=== PATIENT | male | born 1965 | race Caucasian/White ===

== ENCOUNTER 2018-04-28 14:38 | Emergency (ER) | payer OTHER, SELFPAY ==
[2018-04-28 14:45] VITALS: BP 143/79; PULSE 87; RESP 18; TEMP 36.6; O2SAT 95; BMI 37.3
[2018-04-28 14:47] VITALS: BP 143/79; PULSE 87; RESP 18; TEMP 36.6; O2SAT 95; BMI 37.3
--- NOTE | 2018-04-28 15:27 | ED.NAVMDI ---
HPI - Nausea/Vomiting/Diarrhea <LIBERTAD Parker - Last Filed: 04/28/18 18:36> General Chief complaint: Nausea/Vomiting/Diarrhea Stated complaint: vomit/drooling Time Seen by Provider: 04/28/18 15:23 Source: patient Mode of arrival: ambulatory Limitations: no limitations History of Present Illness HPI Narrative: 52-year with history of type 2 diabetes a nonsmoker here for complaint of having a food bolus that he feels in the proximal esophagus since last night. He states approximately at 6:30 a.m. last night he was eating some pork 1 when he felt like it got stuck to his lower esophagus area. He says he has been unable to get it to move down. He has been drooling since this timeframe having a hard time swallowing his secretions. He has been swallowing some soda and fluids to try to get it to move which has not helped. Drinking the fluids causes him to also have some spitting up and vomiting. No other concerns or complaints at this timeframe. He is ambulatory into the emergency room. Related Data Allergies Allergy/AdvReac Type Severity Reaction Status Date / Time No Known Drug Allergies Allergy Verified 04/28/18 14:42 Review of Systems <LIBERTAD Parker - Last Filed: 04/28/18 18:36> Constitutional Denies chills, Denies fever(s), Denies lethargy and Denies weakness Eyes Denies change in vision, Denies eye discharge, Denies irritation and Denies loss of vision ENT Ears, Nose, Mouth, and Throat: Denies change in voice, Denies neck pain and Denies sore throat Cardiovascular Denies chest pain, Denies irregular heart rhythm, Denies lightheadedness, Denies palpitations, Denies dyspnea, Denies dyspnea on exertion and Denies orthopnea Respiratory Denies cough, Denies dyspnea, Denies dyspnea on exertion and Denies wheezing Gastrointestinal Comments: Food bolus Genitourinary Denies hematuria, Denies flank pain, Denies urinary incontinence and Denies urinary urgency Musculoskeletal Denies neck pain Integumentary/Breasts Denies pruritus, Denies erythema, Denies rash and Denies wounds Neurologic Denies confusion, Denies loss of vision and Denies weakness Psychiatric Denies anxiety, Denies confusion, Denies depression, Denies homicidal ideation and Denies suicidal ideation Endocrine Denies palpitations Allergic/Immunologic Denies wheezing PFSH <LIBERTAD Parker - Last Filed: 04/28/18 18:36> Social History Smoking Status: Never smoker Social History Smoking Status: Never smoker Exam <LIBERTAD Parker - Last Filed: 04/28/18 18:36> Initial Vital Signs Initial Vital Signs: Vital Signs Temperature 97.9 F 04/28/18 14:45 Pulse Rate 87 04/28/18 14:45 Respiratory Rate 18 04/28/18 14:45 Blood Pressure 143/79 H 04/28/18 14:45 Pulse Oximetry 95 04/28/18 14:45 Const General: cooperative and well developed Nutritional Appearance: well nourished Orientation: alert, awake, oriented x3 and not confused HENMT Mouth: oral mucosae normal and moist mucous membranes Throat: posterior oropharynx normal Eyes Conjunctivae: conjunctivae normal Sclera: sclerae normal Pupils: PERRL EOM: EOM intact bilaterally Resp Effort & Inspection: normal respiratory effort, able to speak in complete sentences, no respiratory distress and no use of accessory muscles Auscultation: clear to auscultation bilaterally, no rales, no rhonchi and no wheezes Cardio Rate: regular rate Rhythm: regular rhythm Heart Sounds: no click, no gallops, no murmurs and no rubs Pulses: normal peripheral pulses GI Inspection: non-distended Palpation: soft, no hepatosplenomegaly, No guarding, No pulsatile mass and No tender Auscultation: normal bowel sounds Skin General: no rashes or lesions noted, No jaundice and No petechiae Neuro General: alert, oriented x3, gait normal and no focal motor deficits Speech: speech normal <Roshni Gallegos MD - Last Filed: 04/28/18 20:14> Initial Vital Signs Initial Vital Signs: Vital Signs Temperature 97.9 F 04/28/18 14:45 Pulse Rate 87 04/28/18 14:45 Respiratory Rate 18 04/28/18 14:45 Blood Pressure 143/79 H 04/28/18 14:45 Pulse Oximetry 95 04/28/18 14:45 Course <LIBERTAD Parker - Last Filed: 04/28/18 18:36> Orders Ordered: ED Orders 04/28/18 16:00 Complete Blood Count AUTO DIFF Stat Comprehensive Metabolic Panel Stat 04/28/18 16:54 XR chest 2V Stat Discontinued Medications Glucagon (Glucagen) 1 mg IV NOW ONE Stop: 04/28/18 15:29 Last Admin: 04/28/18 16:06 Dose: 1 mg Sodium Chloride (Normal Saline 0.9%) 1,000 mls @ 1,000 mls/hr IV BOLUS ONE Stop: 04/28/18 16:33 Last Infusion: 04/28/18 18:10 Dose: 0 mls/hr Admin: 04/28/18 16:06 Dose: 1,000 mls/hr Vital Signs - 8 hr 04/28/18 14:45 04/28/18 14:47 04/28/18 16:10 Temperature 97.9 F 97.9 F Pulse Rate 87 87 95 H Respiratory Rate 18 18 17 Blood Pressure 143/79 H 143/79 H Blood Pressure [Left Arm] 172/76 H Pulse Oximetry 95 95 96 04/28/18 17:14 04/28/18 18:50 Temperature 99.1 F Pulse Rate 93 H 88 Respiratory Rate 16 18 Blood Pressure Blood Pressure [Left Arm] 167/88 H 169/110 H Pulse Oximetry 97 95 <Roshni Gallegos MD - Last Filed: 04/28/18 20:14> Orders Ordered: ED Orders 04/28/18 16:00 Complete Blood Count AUTO DIFF Stat Comprehensive Metabolic Panel Stat 04/28/18 16:54 XR chest 2V Stat Discontinued Medications Glucagon (Glucagen) 1 mg IV NOW ONE Stop: 04/28/18 15:29 Last Admin: 04/28/18 16:06 Dose: 1 mg Sodium Chloride (Normal Saline 0.9%) 1,000 mls @ 1,000 mls/hr IV BOLUS ONE Stop: 04/28/18 16:33 Last Infusion: 04/28/18 18:10 Dose: 0 mls/hr Admin: 04/28/18 16:06 Dose: 1,000 mls/hr Vital Signs - 8 hr 04/28/18 14:45 04/28/18 14:47 04/28/18 16:10 Temperature 97.9 F 97.9 F Pulse Rate 87 87 95 H Respiratory Rate 18 18 17 Blood Pressure 143/79 H 143/79 H Blood Pressure [Left Arm] 172/76 H Pulse Oximetry 95 95 96 04/28/18 17:14 04/28/18 18:50 Temperature 99.1 F Pulse Rate 93 H 88 Respiratory Rate 16 18 Blood Pressure Blood Pressure [Left Arm] 167/88 H 169/110 H Pulse Oximetry 97 95 MDM - Nausea/Vomiting/Diarrhea <LIBERTAD Parker - Last Filed: 04/28/18 18:36> Lab Data Result diagrams: 04/28/18 16:00 04/28/18 16:00 Lab Results 04/28/18 04/28/18 Range/Units 16:00 16:00 WBC 12.5 H (4.5-11.0) X10^3/uL RBC 5.24 (4.5-5.9) X10^6/uL Hgb 14.6 (13.5-17.5) g/dL Hct 44.2 (41-53) % MCV 84.3 (80-100) fL MCH 27.9 (26-34) PG MCHC 33.1 (30-36) % RDW 14.1 (11.6-14.8) % Plt Count 293 (150-400) X10^3/uL Neut % (Auto) 72.3 (50-75) % Lymph % (Auto) 18.2 L (25-40) % [place] % (Auto) 8.5 (3-14) % Eos % (Auto) 0.4 L (2-4) % Baso % (Auto) 0.6 (0-2) % Neut # (Auto) 9100 H (9150-6664) /uL Lymph # (Auto) 2300 (7658-1300) /uL [place] # (Auto) 1100 H (0-900) /uL Eos # (Auto) 100 (0-450) /uL Baso # (Auto) 100 (0-100) /uL Sodium 141 (137-145) mmol/L Potassium 3.7 (3.4-5.1) mmol/L Chloride 101 (98-107) mmol/L Carbon Dioxide 26 (22-32) mmol/L BUN 26 H (9-20) mg/dL Creatinine 0.90 (0.66-1.25) mg/dL Estimated GFR > 60.0 (>60) mL/min BUN/Creatinine Ratio 28.9 H (6-22) Glucose 193 H (70-100) mg/dL Calcium 9.9 (8.4-10.2) mg/dL Total Bilirubin 0.6 (0.2-1.3) mg/dL AST 33 (17-59) IU/L ALT 57 (21-72) IU/L Alkaline Phosphatase 81 (38-126) U/L Total Protein 8.8 H (6.3-8.2) g/dL Albumin 4.8 (3.5-5.0) g/dL Globulin 4.0 (1.7-4.1) g/dL Albumin/Globulin Ratio 1.2 (1.0-2.8) Imaging Data Chest x-ray: Radiologist's impression: [address] [address] XRay Report Signed Patient: Saran Centeno DMR#: [id number] : 1965Acct:[id number] Age/Sex: 52 / MDate of Service: 04/28/18 Loc: ED Accession Number: [id number] Procedure: XR chest 2V Ordering Provider: Johny Abdi PROCEDURE: XR CHEST 2V INDICATIONS: possible food bolus TECHNIQUE: 2 views of the chest were acquired. COMPARISON: None. FINDINGS: Surgical changes and devices: None. Lungs and pleura: Lungs are clear. No pleural effusions or pneumothorax. Mediastinum: Mediastinal contours are normal. Heart size is normal. Bones and chest wall: No suspicious bony abnormalities. Soft tissues appear unremarkable. IMPRESSION: No acute process. Dictated by: Bela Llanes M.D. on 04/28/2018 at 17:19 Approved by: Bela Llanes M.D. on 04/28/2018 at 17:20 [facility] Narrative Medical decision making narrative: attempted to dislodge food bolus by using a glucagon and drinking a his soda. This did not work. Chest x-ray was obtained and was negative for any acute findings. Discussed case with surgery Dr. Cruz who recommends transferring patient to a facility with Gastroenterology. [facility] at [facility] and he will see the patient there. Patient is transferred to [facility] emergency room via POV. Dr. Cope emergency room physician has accepted. Patient transferred to [facility] emergency room v <Roshni Gallegos MD - Last Filed: 04/28/18 20:14> Lab Data Lab Results 04/28/18 04/28/18 Range/Units 16:00 16:00 WBC 12.5 H (4.5-11.0) X10^3/uL RBC 5.24 (4.5-5.9) X10^6/uL Hgb 14.6 (13.5-17.5) g/dL Hct 44.2 (41-53) % MCV 84.3 (80-100) fL MCH 27.9 (26-34) PG MCHC 33.1 (30-36) % RDW 14.1 (11.6-14.8) % Plt Count 293 (150-400) X10^3/uL Neut % (Auto) 72.3 (50-75) % Lymph % (Auto) 18.2 L (25-40) % [place] % (Auto) 8.5 (3-14) % Eos % (Auto) 0.4 L (2-4) % Baso % (Auto) 0.6 (0-2) % Neut # (Auto) 9100 H (1829-6515) /uL Lymph # (Auto) 2300 (9146-6372) /uL [place] # (Auto) 1100 H (0-900) /uL Eos # (Auto) 100 (0-450) /uL Baso # (Auto) 100 (0-100) /uL Sodium 141 (137-145) mmol/L Potassium 3.7 (3.4-5.1) mmol/L Chloride 101 (98-107) mmol/L Carbon Dioxide 26 (22-32) mmol/L BUN 26 H (9-20) mg/dL Creatinine 0.90 (0.66-1.25) mg/dL Estimated GFR > 60.0 (>60) mL/min BUN/Creatinine Ratio 28.9 H (6-22) Glucose 193 H (70-100) mg/dL Calcium 9.9 (8.4-10.2) mg/dL Total Bilirubin 0.6 (0.2-1.3) mg/dL AST 33 (17-59) IU/L ALT 57 (21-72) IU/L Alkaline Phosphatase 81 (38-126) U/L Total Protein 8.8 H (6.3-8.2) g/dL Albumin 4.8 (3.5-5.0) g/dL Globulin 4.0 (1.7-4.1) g/dL Albumin/Globulin Ratio 1.2 (1.0-2.8) Discharge Plan Departure Patient Disposition: Home Clinical Impression: Food impaction of esophagus Qualifiers: Encounter type: initial encounter Qualified Code(s): T18.128A - Food in esophagus causing other injury, initial encounter Discharge Date/Time: 04/28/18 19:18 Interventions: ED Discharge Assessment Last Done: 04/28/18 19:18 Instructions: DI for Removal of Foreign Body From Esophagus Activity Restrictions/Additional Instructions: you referred to [facility] for Gastroenterology for removal of the food impaction into her esophagus. to the emergency room at [facility] where you will be seen there were gastroenterology is available. For any worsening symptoms in route to go to nearest emergency room or call 911.
[2018-04-28 16:05] LABS: Add Manual Diff / Slide Review NO; Basophils Absolute Auto 100 /uL (0-100); Basophils Percent Auto 0.6 % (0-2); Eosinophils Absolute Auto 100 /uL (0-450); Eosinophils Percent Auto 0.4 % (2-4); Hematocrit 44.2 % (41-53); Hemoglobin 14.6 g/dL (13.5-17.5); Lymphocytes Absolute Auto 2300 /uL (1100-4500); Lymphocytes Percent Auto 18.2 % (25-40); Mean Corpuscular HGB Conc 33.1 % (30-36); Mean Corpuscular Hemoglobin 27.9 PG (26-34); Mean Corpuscular Volume 84.3 fL (80-100); Monocytes Absolute Auto 1100 /uL (0-900); Monocytes Percent Auto 8.5 % (3-14); Neutrophils Absolute Auto 9100 /uL (1500-7000); Neutrophils Percent Auto 72.3 % (50-75); Platelet Count 293 X10^3/uL (150-400); Red Blood Cell Count 5.24 X10^6/uL (4.5-5.9); Red Cell Distribution Width 14.1 % (11.6-14.8); White Blood Cell Count 12.5 X10^3/uL (4.5-11.0)
[2018-04-28] MEDS: GLUCAGON,HUMAN RECOMBINANT 1 MG/ML VIAL IV (16:06)
[2018-04-28] MEDS: SODIUM CHLORIDE 0.9% 1,000 ML 1000 ML IV (16:06)
[2018-04-28 16:10] VITALS: BP 172/76; PULSE 95; RESP 17; O2SAT 96
--- NOTE | 2018-04-28 16:12 | PC.NURSE ---
pt reports he is putting his fingers down his throat to vomit. states that he feels that food is stuck in his lower esphagus. able to make full setences.no airway obstruction.
[2018-04-28 16:14] LABS: Alanine Aminotransferase 57 IU/L (21-72); Albumin 4.8 g/dL (3.5-5.0); Albumin Globulin Ratio 1.2 (1.0-2.8); Alkaline Phosphatase 81 U/L (38-126); Aspartate Aminotransferase 33 IU/L (17-59); BUN Creatinine Ratio 28.9 (6-22); Bilirubin Total 0.6 mg/dL (0.2-1.3); Blood Urea Nitrogen 26 mg/dL (9-20); Calcium 9.9 mg/dL (8.4-10.2); Carbon Dioxide 26 mmol/L (22-32); Chloride 101 mmol/L (98-107); Estimated Glomerular Filt Rate > 60.0 mL/min (>60); Glucose 193 mg/dL (70-100); HEMOLYSIS < 15 (0-50); Potassium 3.7 mmol/L (3.4-5.1); Sodium 141 mmol/L (137-145); Total Protein 8.8 g/dL (6.3-8.2)
--- NOTE | 2018-04-28 16:54 | DI.RAD.S_ITS ---
PROCEDURE: XR CHEST 2V INDICATIONS: possible food bolus TECHNIQUE: 2 views of the chest were acquired. COMPARISON: None. FINDINGS: Surgical changes and devices: None. Lungs and pleura: Lungs are clear. No pleural effusions or pneumothorax. Mediastinum: Mediastinal contours are normal. Heart size is normal. Bones and chest wall: No suspicious bony abnormalities. Soft tissues appear unremarkable. IMPRESSION: No acute process. Dictated by: Bela Llanes M.D. on 04/28/2018 at 17:19 Approved by: Bela Llanes M.D. on 04/28/2018 at 17:20
--- NOTE | 2018-04-28 17:06 | PC.NURSE ---
attempted to drink warm coke without any results. pt having some gag. able to swallow secretions, cough
[2018-04-28 17:14] VITALS: BP 167/88; PULSE 93; RESP 16; O2SAT 97
--- NOTE | 2018-04-28 18:31 | ED_ITS ---
HPI - Nausea/Vomiting/Diarrhea <LIBERTAD Parker - Last Filed: 04/28/18 18:36> General Chief complaint: Nausea/Vomiting/Diarrhea Stated complaint: vomit/drooling Time Seen by Provider: 04/28/18 15:23 Source: patient Mode of arrival: ambulatory Limitations: no limitations History of Present Illness HPI Narrative: 52-year with history of type 2 diabetes a nonsmoker here for complaint of having a food bolus that he feels in the proximal esophagus since last night. He states approximately at 6:30 a.m. last night he was eating some pork 1 when he felt like it got stuck to his lower esophagus area. He says he has been unable to get it to move down. He has been drooling since this arpit eframe having a hard time swallowing his secretions. He has been swallowing some soda and fluids to try to get it to move which has not helped. Drinking the fluids causes him to also have some spitting up and vomiting. No other concerns or complaints at this timeframe. He is ambulatory into the emergency room. Related Data Allergies Allergy/AdvReac Type Severity Reaction Status Date / Time No Known Drug Allergies Allergy Verified 04/28/18 14:42 Review of Systems <LIBERTAD Parker - Last Filed: 04/28/18 18:36> Constitutional Denies chills, Denies fever(s), Denies lethargy and Denies weakness Eyes Denies change in vision, Denies eye discharge, Denies irritation and Denies loss of vision ENT Ears, Nose, Mouth, and Throat: Denies change in voice, Denies neck pain and Denies sore throat Cardiovascular Denies chest pain, Denies irregular heart rhythm, Denies lightheadedness, Denies palpitations, Denies dyspnea, Denies dyspnea on exertion and Denies orthopnea Respiratory Denies cough, Denies dyspnea, Denies dyspnea on exertion and Denies wheezing Gastrointestinal Comments: Food bolus Genitourinary Denies hematuria, Denies flank pain, Denies urinary incontinence and Denies urinary urgency Musculoskeletal Denies neck pain Integumentary/Breasts Denies pruritus, Denies erythema, Denies rash and Denies wounds Neurologic Denies confusion, Denies loss of vision and Denies weakness Psychiatric Denies anxiety, Denies confusion, Denies depression, Denies homicidal ideation and Denies suicidal ideation Endocrine Denies palpitations Allergic/Immunologic Denies wheezing PFSH <LIBERTAD Parker - Last Filed: 04/28/18 18:36> Social History Smoking Status: Never smoker Social History Smoking Status: Never smoker Exam <LIBERTAD Parker - Last Filed: 04/28/18 18:36> Initial Vital Signs Initial Vital Signs: Vital Signs Temperature 97.9 F 04/28/18 14:45 Pulse Rate 87 04/28/18 14:45 Respiratory Rate 18 04/28/18 14:45 Blood Pressure 143/79 H 04/28/18 14:45 Pulse Oximetry 95 04/28/18 14:45 Const General: cooperative and well developed Nutritional Appearance: well nourished Orientation: alert, awake, oriented x3 and not confused HENMT Mouth: oral mucosae normal and moist mucous membranes Throat: posterior oropharynx normal Eyes Conjunctivae: conjunctivae normal Sclera: sclerae normal Pupils: PERRL EOM: EOM intact bilaterally Resp Effort & Inspection: normal respiratory effort, able to speak in complete sentences, no respiratory distress and no use of accessory muscles Auscultation: clear to auscultation bilaterally, no rales, no rhonchi and no wheezes Cardio Rate: regular rate Rhythm: regular rhythm Heart Sounds: no click, no gallops, no murmurs and no rubs Pulses: normal peripheral pulses GI Inspection: non-distended Palpation: soft, no hepatosplenomegaly, No guarding, No pulsatile mass and No tender Auscultation: normal bowel sounds Skin General: no rashes or lesions noted, No jaundice and No petechiae Neuro General: alert, oriented x3, gait normal and no focal motor deficits Speech: speech normal <Roshni Gallegos MD - Last Filed: 04/28/18 20:14> Initial Vital Signs Initial Vital Signs: Vital Signs Temperature 97.9 F 04/28/18 14:45 Pulse Rate 87 04/28/18 14:45 Respiratory Rate 18 04/28/18 14:45 Blood Pressure 143/79 H 04/28/18 14:45 Pulse Oximetry 95 04/28/18 14:45 Course <LIBERTAD Parker - Last Filed: 04/28/18 18:36> Orders Ordered: ED Orders 04/28/18 16:00 Complete Blood Count AUTO DIFF Stat Comprehensive Metabolic Panel Stat 04/28/18 16:54 XR chest 2V Stat Discontinued Medications Glucagon (Glucagen) 1 mg IV NOW ONE Stop: 04/28/18 15:29 Last Admin: 04/28/18 16:06 Dose: 1 mg Sodium Chloride (Normal Saline 0.9%) 1,000 mls @ 1,000 mls/hr IV BOLUS ONE Stop: 04/28/18 16:33 Last Infusion: 04/28/18 18:10 Dose: 0 mls/hr Admin: 04/28/18 16:06 Dose: 1,000 mls/hr Vital Signs - 8 hr 04/28/18 14:45 04/28/18 14:47 04/28/18 16:10 Temperature 97.9 F 97.9 F Pulse Rate 87 87 95 H Respiratory Rate 18 18 17 Blood Pressure 143/79 H 143/79 H Blood Pressure [Left Arm] 172/76 H Pulse Oximetry 95 95 96 04/28/18 17:14 04/28/18 18:50 Temperature 99.1 F Pulse Rate 93 H 88 Respiratory Rate 16 18 Blood Pressure Blood Pressure [Left Arm] 167/88 H 169/110 H Pulse Oximetry 97 95 <Roshni Gallegos MD - Last Filed: 04/28/18 20:14> Orders Ordered: ED Orders 04/28/18 16:00 Complete Blood Count AUTO DIFF Stat Comprehensive Metabolic Panel Stat 04/28/18 16:54 XR chest 2V Stat Discontinued Medications Glucagon (Glucagen) 1 mg IV NOW ONE Stop: 04/28/18 15:29 Last Admin: 04/28/18 16:06 Dose: 1 mg Sodium Chloride (Normal Saline 0.9%) 1,000 mls @ 1,000 mls/hr IV BOLUS ONE Stop: 04/28/18 16:33 Last Infusion: 04/28/18 18:10 Dose: 0 mls/hr Admin: 04/28/18 16:06 Dose: 1,000 mls/hr Vital Signs - 8 hr 04/28/18 14:45 04/28/18 14:47 04/28/18 16:10 Temperature 97.9 F 97.9 F Pulse Rate 87 87 95 H Respiratory Rate 18 18 17 Blood Pressure 143/79 H 143/79 H Blood Pressure [Left Arm] 172/76 H Pulse Oximetry 95 95 96 04/28/18 17:14 04/28/18 18:50 Temperature 99.1 F Pulse Rate 93 H 88 Respiratory Rate 16 18 Blood Pressure Blood Pressure [Left Arm] 167/88 H 169/110 H Pulse Oximetry 97 95 MDM - Nausea/Vomiting/Diarrhea <LIBERTAD Parker - Last Filed: 04/28/18 18:36> Lab Data Result diagrams: 04/28/18 16:00 04/28/18 16:00 Lab Results 04/28/18 04/28/18 Range/Units 16:00 16:00 WBC 12.5 H (4.5-11.0) X10^3/uL RBC 5.24 (4.5-5.9) X10^6/uL Hgb 14.6 (13.5-17.5) g/dL Hct 44.2 (41-53) % MCV 84.3 (80-100) fL MCH 27.9 (26-34) PG MCHC 33.1 (30-36) % RDW 14.1 (11.6-14.8) % Plt Count 293 (150-400) X10^3/uL Neut % (Auto) 72.3 (50-75) % Lymph % (Auto) 18.2 L (25-40) % [place] % (Auto) 8.5 (3-14) % Eos % (Auto) 0.4 L (2-4) % Baso % (Auto) 0.6 (0-2) % Neut # (Auto) 9100 H (5403-6431) /uL Lymph # (Auto) 2300 (8253-8276) /uL [place] # (Auto) 1100 H (0-900) /uL Eos # (Auto) 100 (0-450) /uL Baso # (Auto) 100 (0-100) /uL Sodium 141 (137-145) mmol/L Potassium 3.7 (3.4-5.1) mmol/L Chloride 101 (98-107) mmol/L Carbon Dioxide 26 (22-32) mmol/L BUN 26 H (9-20) mg/dL Creatinine 0.90 (0.66-1.25) mg/dL Estimated GFR > 60.0 (>60) mL/min BUN/Creatinine Ratio 28.9 H (6-22) Glucose 193 H (70-100) mg/dL Calcium 9.9 (8.4-10.2) mg/dL Total Bilirubin 0.6 (0.2-1.3) mg/dL AST 33 (17-59) IU/L ALT 57 (21-72) IU/L Alkaline Phosphatase 81 (38-126) U/L Total Protein 8.8 H (6.3-8.2) g/dL Albumin 4.8 (3.5-5.0) g/dL Globulin 4.0 (1.7-4.1) g/dL Albumin/Globulin Ratio 1.2 (1.0-2.8) Imaging Data Chest x-ray: Radiologist's impression: [address] [address] XRay Report Signed Patient: Saran Centeno DMR#: [id number] : 1965Acct:[id number] Age/Sex: 52 / MDate of Service: 04/28/18 Loc: ED Accession Number: [id number] Procedure: XR chest 2V Ordering Provider: Johny Abdi PROCEDURE: XR CHEST 2V INDICATIONS: possible food bolus TECHNIQUE: 2 views of the chest were acquired. COMPARISON: None. FINDINGS: Surgical changes and devices: None. Lungs and pleura: Lungs are clear. No pleural effusions or pneumothorax. Mediastinum: Mediastinal contours are normal. Heart size is normal. Bones and chest wall: No suspicious bony abnormalities. Soft tissues appear unremarkable. IMPRESSION: No acute process. Dictated by: Bela Llanes M.D. on 04/28/2018 at 17:19 Approved by: Bela Llanes M.D. on 04/28/2018 at 17:20 MDM Narrative Medical decision making narrative: attempted to dislodge food bolus by using a glucagon and drinking a his soda. This did not work. Chest x-ray was obtained and was negative for any acute findings. Discussed case with surgery Dr. Cruz who recommends transferring patient to a facility with Gastroenterology. [facility] at [place] and he will see the patient there. Patient is transferred to [place] emergency room via POV. Dr. Cope emergency room physician has accepted. Patient transferred to [place] [facility] emergency room v <Roshni Gallegos MD - Last Filed: 04/28/18 20:14> Lab Data Lab Results 04/28/18 04/28/18 Range/Units 16:00 16:00 WBC 12.5 H (4.5-11.0) X10^3/uL RBC 5.24 (4.5-5.9) X10^6/uL Hgb 14.6 (13.5-17.5) g/dL Hct 44.2 (41-53) % MCV 84.3 (80-100) fL MCH 27.9 (26-34) PG MCHC 33.1 (30-36) % RDW 14.1 (11.6-14.8) % Plt Count 293 (150-400) X10^3/uL Neut % (Auto) 72.3 (50-75) % Lymph % (Auto) 18.2 L (25-40) % [place] % (Auto) 8.5 (3-14) % Eos % (Auto) 0.4 L (2-4) % Baso % (Auto) 0.6 (0-2) % Neut # (Auto) 9100 H (0246-6991) /uL Lymph # (Auto) 2300 (2554-9221) /uL [place] # (Auto) 1100 H (0-900) /uL Eos # (Auto) 100 (0-450) /uL Baso # (Auto) 100 (0-100) /uL Sodium 141 (137-145) mmol/L Potassium 3.7 (3.4-5.1) mmol/L Chloride 101 (98-107) mmol/L Carbon Dioxide 26 (22-32) mmol/L BUN 26 H (9-20) mg/dL Creatinine 0.90 (0.66-1.25) mg/dL Estimated GFR > 60.0 (>60) mL/min BUN/Creatinine Ratio 28.9 H (6-22) Glucose 193 H (70-100) mg/dL Calcium 9.9 (8.4-10.2) mg/dL Total Bilirubin 0.6 (0.2-1.3) mg/dL AST 33 (17-59) IU/L ALT 57 (21-72) IU/L Alkaline Phosphatase 81 (38-126) U/L Total Protein 8.8 H (6.3-8.2) g/dL Albumin 4.8 (3.5-5.0) g/dL Globulin 4.0 (1.7-4.1) g/dL Albumin/Globulin Ratio 1.2 (1.0-2.8) Discharge Plan Departure Patient Disposition: Home Clinical Impression: Food impaction of esophagus Qualifiers: Encounter type: initial encounter Qualified Code(s): T18.128A - Food in esophagus causing other injury, initial encounter Discharge Date/Time: 04/28/18 19:18 Interventions: ED Discharge Assessment Last Done: 04/28/18 19:18 Instructions: DI for Removal of Foreign Body From Esophagus Activity Restrictions/Additional Instructions: you referred to for Gastroenterology for removal of the food impaction into her esophagus. to the emergency room at [facility] where you will be seen there were gastroenterology is available. For any worsening symptoms in route to go to nearest emergency room or call 911.
[2018-04-28 18:50] VITALS: BP 169/110; PULSE 88; RESP 18; TEMP 37.3; O2SAT 95
== END 2018-04-28 19:18 | disposition home or self-care (01) ==
PROVIDERS: Emergency Provider Nurse Practitioner Family
DX: T18.128A Food in esophagus causing other injury, initial encounter (principal)
CPT/HCPCS: 36591; 71046; 80053; 85025; 96361; 96374; 99283; 99284; J1610